=== PATIENT | male | born 1985 | race Caucasian/White ===

== ENCOUNTER 2017-05-11 20:38 | Emergency (ER) | payer OTHER ==
[~2017-05-11] VITALS: Ht 177.8 cm; Wt 72.6 kg
[2017-05-11 20:41] VITALS: BP 116/74
== END 2017-05-11 21:11 | disposition home or self-care (01) ==
LOC: ED 21:00
DX: L98.499 Non-pressure chronic ulcer of skin of other sites with unspecified severity (principal); Z88.8 Allergy status to other drugs, medicaments and biological substances
CPT/HCPCS: 99283

== ENCOUNTER 2018-07-25 20:35 | Inpatient (IN) | payer MEDICAID, OTHER ==
[~2018-07-25] VITALS: Ht 177.8 cm; Wt 95.8 kg
[2018-07-25] MEDS ORDERED: GABA-827 PO (20:54)
[2018-07-25] MEDS ORDERED: BUPR1FIL3 PO (20:54)
[2018-07-25] MEDS ORDERED: LORazepam 2 MG/ML, 1ML ONE (20:59)
[2018-07-25] MEDS ORDERED: LORazepam 2 MG/ML, 1ML IVPush ONE (21:00)
[2018-07-25] MEDS ORDERED: LAMO200T3 PO (21:01)
[2018-07-25] MEDS ORDERED: LEVETIRACETAM 1,000 MG in SODIUM CHLORIDE 0.9% 100 ML IV ONE (21:30)
[2018-07-25 21:39] LABS: BASOPHILS # (AUTO) 0.03 x10^3/uL (0-0.1); BASOPHILS % (AUTO) 0 % (0-1); EOSINOPHILS # (AUTO) 0.08 x10^3/uL (0-0.4); EOSINOPHILS % (AUTO) 1 % (1-7); LYMPHOCYTES # (AUTO) 2.28 x10^3/uL (1-3.4); LYMPHOCYTES % (AUTO) 18 % (22-44); MD NO; MEAN CORPUSCULAR HEMOGLOBIN 31.6 pg (27.5-34.5); MEAN CORPUSCULAR HGB CONC 33.9 g/dL (33.2-36.2); MEAN CORPUSCULAR VOLUME 93.3 fL (81-97); MEAN PLATELET VOLUME 7.8 fL (7.4-10.4); MONOCYTES # (AUTO) 0.56 x10^3/uL (0.2-0.8); MONOCYTES % (AUTO) 4 % (2-9); NEUTROPHILS # (AUTO) 9.79 x10^3/uL (1.8-6.8); NEUTROPHILS % (AUTO) 77 % (42-75); PLATELET COUNT 240 x10^3/uL (130-400); RED BLOOD COUNT 4.81 x10^6/uL (4.38-5.82); RED CELL DISTRIBUTION WIDTH 13.5 % (9.4-14.8)
[2018-07-25 21:45] LABS: INTERNATIONAL NORMALIZED RATIO 1.01 (0.93-1.1); PROTHROMBIN TIME 10.7 Seconds (9.6-11.5)
[2018-07-25 21:48] LABS: ALBUMIN 4.4 g/dL (3.4-5.0); ANION GAP 17 mmol/L (5-15); CALCIUM 8.6 mg/dL (8.5-10.1); CHLORIDE 104 mmol/L (98-107)
[2018-07-25 21:58] LABS: ALANINE AMINOTRANSFERASE 23 U/L (12-78); ALKALINE PHOSPHATASE 85 U/L (45-117); BILIRUBIN,TOTAL 0.2 mg/dL (0.2-1.0); CREATININE 1.49 mg/dL (0.7-1.3); SALICYLATE LEVEL 4.5 mg/dL (2.8-20.0); TOTAL PROTEIN 7.5 g/dL (6.4-8.2)
[2018-07-25 21:59] LABS: ACETAMINOPHEN < 2 mcg/mL (10-30)
[2018-07-25] MEDS ORDERED: ONDANSETRON 2MG/ML, 2ML ONE (22:07)
[2018-07-25] MEDS ORDERED: CHANTIX PO (22:18)
[2018-07-25] MEDS ORDERED: IBUP-1223 PO (22:18)
[2018-07-25] MEDS ORDERED: LAMICTAL PO (22:18)
[2018-07-25] MEDS ORDERED: PROP10TA PO (22:18)
[2018-07-25] MEDS ORDERED: ONDANSETRON 2MG/ML, 2ML IVPush ONE (22:30)
[2018-07-25] MEDS ORDERED: LEVETIRACETAM 500 MG in SODIUM CHLORIDE 0.9% 100 ML IV ONE (23:00)
[2018-07-25 23:38] LABS: AMPHETAMINE SCREEN, URINE Negative (Negative); BARBITURATE SCREEN, URINE Negative (Negative); BENZODIAZEPINE SCREEN, URINE Negative (Negative); CANNABINOID SCREEN, URINE Negative (Negative); COCAINE SCREEN, URINE Negative (Negative); METHADONE SCREEN, URINE Negative (Negative); OPIATE SCREEN, URINE Negative (Negative)
[2018-07-26 01:00] VITALS: BP 96/58
[2018-07-26] MEDS ORDERED: DOCUSATE 100 MG CAPSULE PO PRN (01:00)
[2018-07-26] MEDS: ONDANSETRON 2MG/ML, 2ML IVPush PRN ×2 (01:13→15:56)
[2018-07-26] MEDS: ACETAMINOPHEN 325 MG TABLET PO PRN ×3 (01:14→15:56)
[2018-07-26 03:01] VITALS: BP 91/51
[2018-07-26] MEDS ORDERED: SCOPOLAMINE PATCH, 1.5MG PATCH.TD72 TD ONE (07:00)
[2018-07-26] MEDS ORDERED: LEVETIRACETAM 1,000 MG in SODIUM CHLORIDE 0.9% 100 ML IV SCH (08:00)
[2018-07-26 08:25] VITALS: BP 96/60
[2018-07-26 10:16] LABS: MEAN CORPUSCULAR HEMOGLOBIN 31.6 pg (27.5-34.5); MEAN CORPUSCULAR HGB CONC 34.2 g/dL (33.2-36.2); MEAN CORPUSCULAR VOLUME 92.4 fL (81-97); MEAN PLATELET VOLUME 7.3 fL (7.4-10.4); PLATELET COUNT 224 x10^3/uL (130-400); RED BLOOD COUNT 4.45 x10^6/uL (4.38-5.82); RED CELL DISTRIBUTION WIDTH 13.5 % (9.4-14.8)
[2018-07-26 10:27] LABS: ALANINE AMINOTRANSFERASE 22 U/L (12-78); ANION GAP 6 mmol/L (5-15); CALCIUM 8.3 mg/dL (8.5-10.1); CHLORIDE 109 mmol/L (98-107); CREATININE 0.98 mg/dL (0.7-1.3)
[2018-07-26 10:29] LABS: ALKALINE PHOSPHATASE 76 U/L (45-117); BILIRUBIN,TOTAL 0.4 mg/dL (0.2-1.0); TOTAL PROTEIN 6.8 g/dL (6.4-8.2)
[2018-07-26 10:35] LABS: BASOPHILS # (AUTO) 0.01 x10^3/uL (0-0.1); BASOPHILS % (AUTO) 0 % (0-1); EOSINOPHILS # (AUTO) 0.02 x10^3/uL (0-0.4); EOSINOPHILS % (AUTO) 0 % (1-7); LYMPHOCYTES # (AUTO) 1.02 x10^3/uL (1-3.4); LYMPHOCYTES % (AUTO) 14 % (22-44); MD SCAN; MONOCYTES # (AUTO) 0.27 x10^3/uL (0.2-0.8); MONOCYTES % (AUTO) 4 % (2-9); NEUTROPHILS # (AUTO) 6.27 x10^3/uL (1.8-6.8); NEUTROPHILS % (AUTO) 83 % (42-75)
[2018-07-26] MEDS ORDERED: BUPRENORPHINE/NALOXONE 8-2MG SL SCH (12:00)
[2018-07-26] MEDS: LEVETIRACETAM 500 MG in SODIUM CHLORIDE 0.9% 100 ML IV SCH (13:21)
[2018-07-26 14:33] VITALS: BP 96/60
[2018-07-26] MEDS: GABAPENTIN 400 MG CAPSULE PO SCH ×2 (15:48→21:11)
[2018-07-26 19:53] VITALS: BP 93/50
[2018-07-26] MEDS ORDERED: LEVETIRACETAM 100 MG/ML, 5ML IVPush SCH (21:00)
[2018-07-26] MEDS: LAMOTRIGINE 100 MG TABLET PO SCH (21:12)
[2018-07-27] VITALS (7 sets, daily range): BP systolic 86–105; BP diastolic 42–68
[2018-07-27] MEDS: LEVETIRACETAM 500 MG in SODIUM CHLORIDE 0.9% 100 ML IV SCH (00:50)
[2018-07-27] MEDS ORDERED: SODIUM CHLORIDE 0.9% 1,000ML IVBOLUS ONE (05:00)
[2018-07-27 05:57] LABS: BASOPHILS # (AUTO) 0.01 x10^3/uL (0-0.1); BASOPHILS % (AUTO) 0 % (0-1); EOSINOPHILS # (AUTO) 0.23 x10^3/uL (0-0.4); EOSINOPHILS % (AUTO) 4 % (1-7); LYMPHOCYTES # (AUTO) 2.86 x10^3/uL (1-3.4); LYMPHOCYTES % (AUTO) 46 % (22-44); MD NO; MEAN CORPUSCULAR HEMOGLOBIN 31.4 pg (27.5-34.5); MEAN CORPUSCULAR HGB CONC 33.5 g/dL (33.2-36.2); MEAN CORPUSCULAR VOLUME 93.7 fL (81-97); MEAN PLATELET VOLUME 7.6 fL (7.4-10.4); MONOCYTES % (AUTO) 6 % (2-9); NEUTROPHILS # (AUTO) 2.74 x10^3/uL (1.8-6.8); NEUTROPHILS % (AUTO) 44 % (42-75); PLATELET COUNT 203 x10^3/uL (130-400); RED BLOOD COUNT 4.39 x10^6/uL (4.38-5.82); RED CELL DISTRIBUTION WIDTH 14.1 % (9.4-14.8)
[2018-07-27 06:02] LABS: ANION GAP 5 mmol/L (5-15); CALCIUM 8.5 mg/dL (8.5-10.1); CHLORIDE 108 mmol/L (98-107); CREATININE 0.96 mg/dL (0.7-1.3)
[2018-07-27 06:03] LABS: ALBUMIN 3.6 g/dL (3.4-5.0)
[2018-07-27] MEDS: BUPRENORPHINE/NALOXONE 8-2MG SL SCH (08:09)
[2018-07-27] MEDS: GABAPENTIN 400 MG CAPSULE PO SCH ×3 (08:09→20:59)
[2018-07-27] MEDS: LAMOTRIGINE 100 MG TABLET PO SCH (20:59)
[2018-07-28 03:55] VITALS: BP 90/45
[2018-07-28 05:59] LABS: BASOPHILS # (AUTO) 0.02 x10^3/uL (0-0.1); BASOPHILS % (AUTO) 0 % (0-1); EOSINOPHILS # (AUTO) 0.26 x10^3/uL (0-0.4); EOSINOPHILS % (AUTO) 4 % (1-7); LYMPHOCYTES # (AUTO) 2.82 x10^3/uL (1-3.4); LYMPHOCYTES % (AUTO) 41 % (22-44); MD NO; MEAN CORPUSCULAR HEMOGLOBIN 31.3 pg (27.5-34.5); MEAN CORPUSCULAR HGB CONC 33.2 g/dL (33.2-36.2); MEAN CORPUSCULAR VOLUME 94.4 fL (81-97); MEAN PLATELET VOLUME 7.7 fL (7.4-10.4); MONOCYTES # (AUTO) 0.53 x10^3/uL (0.2-0.8); MONOCYTES % (AUTO) 8 % (2-9); NEUTROPHILS # (AUTO) 3.24 x10^3/uL (1.8-6.8); NEUTROPHILS % (AUTO) 47 % (42-75); PLATELET COUNT 203 x10^3/uL (130-400); RED BLOOD COUNT 4.63 x10^6/uL (4.38-5.82); RED CELL DISTRIBUTION WIDTH 13.9 % (9.4-14.8)
[2018-07-28 06:08] LABS: ALBUMIN 3.7 g/dL (3.4-5.0); ANION GAP 6 mmol/L (5-15); CALCIUM 8.8 mg/dL (8.5-10.1); CHLORIDE 109 mmol/L (98-107); CREATININE 0.91 mg/dL (0.7-1.3)
[2018-07-28 07:14] VITALS: BP 95/56
[2018-07-28] MEDS: GABAPENTIN 400 MG CAPSULE PO SCH (08:17)
[2018-07-28] MEDS: BUPRENORPHINE/NALOXONE 8-2MG SL SCH (08:18)
[2018-07-28] MEDS ORDERED: LAMO100T PO (08:46)
== END 2018-07-28 14:10 | disposition home or self-care (01) | DRG 100 ==
LOC: ED 23:20 → EDIP 23:23 → 4WST 23:47 → DCLOUNGE 07-28 14:05
PROVIDERS: ADMIT Internal Medicine; ATTEND Internal Medicine
DX: G40.401 Other generalized epilepsy and epileptic syndromes, not intractable, with status epilepticus (principal); N17.0 Acute kidney failure with tubular necrosis; D72.829 Elevated white blood cell count, unspecified; F11.10 Opioid abuse, uncomplicated; F17.200 Nicotine dependence, unspecified, uncomplicated; F31.9 Bipolar disorder, unspecified; G43.909 Migraine, unspecified, not intractable, without status migrainosus; G93.89 Other specified disorders of brain; H54.7 Unspecified visual loss; H55.00 Unspecified nystagmus; Z78.1 Physical restraint status; Z79.899 Other long term (current) drug therapy; Z87.820 Personal history of traumatic brain injury
CPT/HCPCS: 36415; 74018; 99285; J0574; 70450; 70544; 70551; 80048; 80053; 80307; 80329; 82040; 83735; 84100; 85025; 85610; 85730; 93005; 95819; 96374; 96375; 96376; G0378; J1953; J2405; G0480; J2060; J7030

== ENCOUNTER 2021-01-09 18:02 | Emergency (ER) | payer MEDICAID, OTHER ==
[~2021-01-09] VITALS: Ht 180.3 cm; Wt 83.4 kg
[~2021-01-09 18:02] MED LIST: BUPR1FIL3 PO; CELE100C; CHANTIX PO; GABA-827 PO; GABA300C10 PO; IBUP-1223 PO; LAMICTAL PO; LAMO100T8 PO; LAMO150T3 PO; LAMO200T3 PO; OLAN10TA5 PO; PROP10TA16 PO
[2021-01-09 18:09] VITALS: BP 112/70
--- NOTE | 2021-01-09 20:39 | NUR ---
OIL FIELD ROUSTABOUT: NIL X 1 WHEN CALLED FOR ROOM.
--- NOTE | 2021-01-09 21:09 | NUR ---
MANAGER CABLE: NIL X 2 WHEN CALLED FOR ROOM.
--- NOTE | 2021-01-09 21:25 | NUR ---
[employer]: NIL X 3 WHEN CALLED FOR ROOM.
== END 2021-01-09 21:28 | disposition left against medical advice (07) ==
LOC: ED 21:20
DX: R51.9 Headache, unspecified (principal)
CPT/HCPCS: 99281

== ENCOUNTER 2021-03-06 19:26 | Emergency (ER) | payer MEDICAID ==
[~2021-03-06] VITALS: Ht 180.3 cm; Wt 83.0 kg
[2021-03-06 19:36] VITALS: BP 103/64
[2021-03-06] MEDS ORDERED: DIPH,PERTUSS(ACELL),TET VAC/PF 0.5 ML IM-VACC ONE ×3 (19:56→20:00)
[2021-03-06] MEDS ORDERED: LIDOCAINE-MPF 1%, 5ML ONE ×2 (19:56→20:41)
[2021-03-06] MEDS ORDERED: LIDOCAINE-MPF 1%, 5ML INFIL ONE (20:00)
--- NOTE | 2021-03-06 20:45 | NUR ---
erp at bedside for lido and emt at bedside for irrigation
[2021-03-06] MEDS ORDERED: BUPIVACAINE 0.25% ONE (20:52)
[2021-03-06] MEDS ORDERED: BUPIVACAINE/PF 0.25% INFIL ONE (21:00)
--- NOTE | 2021-03-06 21:20 | NUR ---
erp at bedside for sutures
[2021-03-06] MEDS ORDERED: NEOSPORIN OINT. PKT 1 PACKET ONE (21:42)
== END 2021-03-06 22:55 | disposition home or self-care (01) ==
LOC: ED 22:43
DX: S61.411A Laceration without foreign body of right hand, initial encounter (principal); F17.210 Nicotine dependence, cigarettes, uncomplicated; X58.XXXA Exposure to other specified factors, initial encounter; Y93.89 Activity, other specified; Y92.89 Other specified places as the place of occurrence of the external cause; Y99.8 Other external cause status
CPT/HCPCS: 12042; 90471; 90715; 99406